=== PATIENT | female | born 1985 ===

== ENCOUNTER 2016-11-01 08:45 | Day surgery (SDC) | payer MEDICAID ==
[2016-10-23 15:04] VITALS: BMI 29.9
[2016-11-01] MEDS ORDERED: Propofol 10 mg/ml Inj (20 ML) ONE (11:35)
[2016-11-01] MEDS ORDERED: Midazolam 2 MG/2 ML VIAL ONE (11:35)
[2016-11-01] MEDS ORDERED: Lactated Ringer's 1,000 ML IV ONE ×2 (11:37→12:16)
[2016-11-01] MEDS ORDERED: ceFAZolin IV 2 gm in Dextrose 0 GM/0 ML BAG IVPB ONE (11:37)
[2016-11-01] MEDS: ceFAZolin IV 1 gm in Dextrose 1 GM/50 ML BAG IVPB ONE ×2 (11:50→11:53)
[2016-11-01] MEDS ORDERED: Oxycodone/Acetaminophen 5/325 mg Tab PO PRN (12:54)
--- NOTE | 2016-11-01 12:54 | PCM.SURG1 ---
Surgeon's Initial Post Op Note - Surgeon's Notes Surgeon: Dr. Cardenas Communication Equipment Repairer: Dr. Chan PGY3, Dr. Burns PGY1 Type of Anesthesia: General Endo Pre-Operative Diagnosis: cholelithiasis Operative Findings: see op report Post-Operative Diagnosis: same Operation Performed: laparoscopic cholecystectomy Specimen/Specimens Removed: gallbladder Estimated Blood Loss: EBL {In ML}: 10 Blood Products Given: N/A Drains Used: No Drains Post-Op Condition: Good Date of Surgery/Procedure: 11/01/16 Time of Surgery/Procedure: 12:54
[2016-11-01] MEDS: HYDROmorphone 0.5 mg/0.5 ml ISec IVP PRN ×2 (13:33→14:43)
[2016-11-01 15:20] VITALS: RESP 18
[2016-11-01 16:53] VITALS: BP 105/64; PULSE 67; TEMP 98; O2SAT 98
--- NOTE | 2016-11-12 14:14 | PCM.OP ---
Operative Report - Operative Report Date of Surgery/Procedure: 11/01/16 Time of Surgery/Procedure: 11:00 Surgeon: Dr. Ramonita Cardenas Corporate Controller: Dr. Katy Logan Anesthesia/Sedation: General Anesthesia: Dr. Raza Pre-Operative Diagnosis: Cholelithiasis Post-Operative Diagnosis: Cholelithiasis Indication for Surgery: symptomatic cholelithiasis Operative Findings: cholelithiasis, no acute cholecystitis Procedure/Operation Description: Laparoscopic Cholecystectomy. With the patient in the supine position under adequate general anesthesia, the abdomen was prepped and draped in the usual sterile manner. Veress needle puncture was performed at the umbilicus with insufflation to 15 cm water pressure of CO2 and a 10 mm laparoscopic trocar was inserted via an infraumbilical incision. Under direct vision, additional trocars were inserted in the epigastrium and right costal margin. The gallbladder was identified; it was not acutely inflamed. The fundus was grasped and elevated. Omental adhesions including some adhesions to the duodenum were gently taken down from the peritoneal surface of the gallbladder to expose the infundibulum. The infundibulum was grasped and retracted laterally. The cystic duct was identified and dissected. The cystic duct was cleared down toward the junction with the common bile duct and viewed anteriorly and posteriorly for a view of safety. The cystic duct was then triply clipped and divided. Anterior and posterior branches of the cystic artery were separately identified, dissected and triply clipped and divided. The gallbladder was dissected free of the liver bed using electrocautery. The liver bed was inspected for hemostasis and the dissection was completed. The gallbladder was placed in a specimen retrieval bag and removed via the umbilical port site. Small stones were palpable within the gallbladder. RUQ was irrigated and suctioned. The pneumoperitoneum was released and the trocars were removed. The umbilical port site was closed with a [id number] fascial suture of 0-vicryl. All incisions were closed with 4-0 monocryl subcuticular sutures and glue. Dry sterile dressings were applied. The patient tolerated the procedure well and transferred to the recovery room in stable condition. Estimated Blood Loss: 10ccs Complications: none Specimen: gallbladder Discharge & Condition: To RR in stable condition
== END 2016-11-01 16:53 | disposition home or self-care (01) ==
LOC: C.SDS 08:45
PROVIDERS: ATTEND Specialist
DX: K80.20 Calculus of gallbladder without cholecystitis without obstruction (principal)
CPT/HCPCS: 47562; 88304; J0690; J1170; J2250; J2405; J2704; J3010; J7040; J7120